=== PATIENT | female | born 1995 | race African-American/Black ===

== ENCOUNTER 2019-12-09 07:14 | Emergency (ER) | payer MEDICAID, OTHER ==
[~2019-12-09] VITALS: Ht 160 cm; Wt 58.9 kg
[2019-12-09] MEDS ORDERED: hydrALAZINE (APESOLINE) 20 MG/ML VIAL IV ONE ×3 (07:30→15:30)
--- NOTE | 2019-12-09 07:50 | NUR ---
Covid swab obtained from patient and sent to lab.
--- NOTE | 2019-12-09 07:56 | ED General ---
General Stated Complaint: GENERALIZED WEAKNESS Source of Information: Patient (LIMITED HISTORIAN), EMS History of Present Illness Date Seen by Provider: Dec 09, 2019 Time Seen by Provider: 07:15 Initial Comments PT ARRIVES VIA EMS--PT WAS PICKED UP FROM [facility] PT STATES SHE "DOESN'T FEEL GOOD" AND "NEEDS DIALYSIS" C/O SHORTNESS OF BREATH PT HAS ESRD AND IS ON DIALYSIS--STATES LAST DIALYSIS WAS 11/30/19 PT STATES SHE HAS BEEN ON DIALYSIS FOR 1 YEAR, AND IS SUPPOSED TO GET IN ON MONDAY, MONDAY, MONDAY PT STATES SHE IS "TRAVELING AROUND" WITH HER BROTHER, FROM [place] PT STATES SHE WAS HOSPITALIZED IN [place] IN [place] FOR "INFECTION IN HER HEART" AND HAS BEEN OUT OF THE HOSPITAL SINCE 11/30/19, WHEN SHE LAST HAD DIALYSIS AND WAS ON IV ANTIBIOTICS WHILE IN HOSPITAL--NOT ON ANTIBIOTICS SINCE THEN, ??POSSIBLY LEFT AMA?? STATES SHE GOT HERE TO [place] ON 12/01/19 PT HAS RIGHT CENTRAL LINE FOR DIALYSIS PT ALSO HAS HTN AND IS SUPPOSED TO BE ON CLONIDINE, COREG ( DESPITE REPORTING THAT SHE IS "ALLERGIC TO BETA BLOCKERS" ) , DOXAZOSIN, AND REPORTEDLY TAKES HYDROCODONE 10/325 "MULTIPLE TIMES A DAY" FOR CHRONIC GENERALIZED PAIN --STATES SHE HAS NOT TAKEN ANY MEDICATION TODAY WANTING PAIN MEDICATION SOON SHE ARRIVES--FOR "HURTING ALL OVER" PT DENIES CHEST PAIN DENIES FEVER DENIES COUGH NO SWELLING Allergies and Home Medications Allergies Coded Allergies: Beta-Blockers (Beta-Adrenergic Bloc (Verified Allergy, Unknown, 12/09/19) Home Medications Carvedilol 3.125 Mg Tablet, 3.125 MG PO BID, (Reported) Clonidine HCl 0.1 Mg Tablet, 0.1 MG PO BID, (Reported) Doxazosin Mesylate 1 Mg Tablet, 1 MG PO DAILY, (Reported) Hydrocodone/Acetaminophen 1 Each Tablet, 1 EACH PO PRN, (Reported) Patient Home Medication List Home Medication List Reviewed: Yes Review of Systems Review of Systems Constitutional: malaise Respiratory: short of breath Cardiovascular: No chest pain Gastrointestinal: No vomiting Genitourinary: see HPI Past Rtgsafn-Ytqsvv-Oknwbh Hx Past Med/Social Hx: Reviewed and Corrections made Patient Social History Alcohol Use: Denies Use Recreational Drug Use: No (DENIES ) Smoking Status: Never a Smoker Past Medical History Surgeries: Yes (RIGHT CENTRAL LINE FOR DIALYSIS; UNKNOWN TYPE OF ABDOMINAL SURGERY) Abdominal Cardiac: Yes Endocarditis, Hypertension Genitourinary: Yes Renal Failure, Dialysis Gastrointestinal: Yes (UNKNOWN ABOMINAL SURGERY) Endocrine: Yes Lupus Family Medical History PT HAS MIDLINE ABDOMINAL SURGICAL SCAR--STATES "SHE HAD A BLOOD CLOT" --ON QUIESTIONING OF WHERE HER "BLOOD CLOT" WAS AND WHY SHE NEEDED SURGERY, SHE WOULD ONLY STATE "I HAD BLOOD COMING OUT OF MY HENDERSON HENDERSON" AND COULD NOT ELABORATE Physical Exam Vital Signs Vital Signs - First Documented 12/09/19 07:14 Temp 36.6 Pulse 75 Resp 20 B/P (MAP) 181/122 (141) Pulse Ox 100 O2 Delivery Room Air Capillary Refill : Height, Weight, BMI Height: '" Weight: lbs. oz. kg; BMI Method: General Appearance: No Apparent Distress, WD/WN, Other (VERY DRAMATIC) HEENT: PERRL/EOMI Respiratory: Normal Breath Sounds, No Accessory Muscle Use, No Respiratory Distress, Other (RIGHT CENTRAL LINE DIALYSIS CATHETER IN PLACE. NO OBVIOUS SIGNS OF INFECTION) Cardiovascular: Regular Rate, Rhythm, No Murmur Gastrointestinal: Non Tender, Soft Extremity: No Pedal Edema Neurologic/Psychiatric: Alert, Oriented x3, No Motor/Sensory Deficits, Other (VERY DRAMATIC, WAILING AND CRYING WITH IV STICKS/ATTEMPTS) Skin: Normal Color (PT IS BLACK), Warm/Dry Focused Exam Lactate Level 12/09/19 09:20: Lactic Acid Level 0.60 Lactic Acid Level Progress/Results/Core Measures Suspected Sepsis SIRS Temperature: Pulse: Respiratory Rate: Laboratory Tests 12/09/19 09:20: White Blood Count 3.8L Blood Pressure / Mean: 12/09/19 09:20: Lactic Acid Level 0.60 Laboratory Tests 12/09/19 09:20: Creatinine 7.22H, INR Comment 1.2, Platelet Count 163, Total Bilirubin 0.4 Results/Orders Lab Results Laboratory Tests Test 12/09/19 07:50 12/09/19 08:07 12/09/19 09:20 12/09/19 09:22 Range/Units Coronavirus (COVID-19)(PCR) Negative Negative Urine Color YELLOW Urine Clarity SL CLOUDY Urine pH 7.5 5-9 Urine Specific [place] 1.015 L 1.016-1.022 Urine Protein 2+ H NEGATIVE Urine Glucose (UA) NEGATIVE NEGATIVE Urine Ketones NEGATIVE NEGATIVE Urine Nitrite NEGATIVE NEGATIVE Urine Bilirubin NEGATIVE NEGATIVE Urine Urobilinogen 0.2 < = 1.0 MG/DL Urine Leukocyte Esterase NEGATIVE NEGATIVE Urine RBC (Auto) NEGATIVE NEGATIVE Urine RBC NONE /HPF Urine WBC NONE /HPF Urine Squamous Epithelial Cells 5-10 /HPF Urine Crystals NONE /LPF Urine Bacteria TRACE /HPF Urine Casts NONE /LPF Urine Mucus NEGATIVE /LPF Urine Trichomonas MODERATE H /HPF Urine Culture Indicated NO Urine Test NEGATIVE NEGATIVE Urine Opiates Screen NEGATIVE NEGATIVE Urine Oxycodone Screen NEGATIVE NEGATIVE Urine Methadone Screen NEGATIVE NEGATIVE Urine Propoxyphene Screen NEGATIVE NEGATIVE Urine Barbiturates Screen NEGATIVE NEGATIVE Ur Tricyclic Antidepressants Screen NEGATIVE NEGATIVE Urine Phencyclidine Screen NEGATIVE NEGATIVE Urine Amphetamines Screen NEGATIVE NEGATIVE Urine Methamphetamines Screen NEGATIVE NEGATIVE Urine Benzodiazepines Screen NEGATIVE NEGATIVE Urine Cocaine Screen NEGATIVE NEGATIVE Urine Cannabinoids Screen POSITIVE H NEGATIVE White Blood Count 3.8 L 4.3-11.0 10^3/uL Red Blood Count 2.92 L 4.35-5.85 10^6/uL Hemoglobin 8.0 L 11.5-16.0 G/DL Hematocrit 25 L 35-52 % Mean Corpuscular Volume 84 80-99 FL Mean Corpuscular Hemoglobin 27 25-34 PG Mean Corpuscular Hemoglobin Concent 33 32-36 G/DL Red Cell Distribution Width 14.9 H 10.0-14.5 % Platelet Count 163 130-400 10^3/uL Mean Platelet Volume 8.5 7.4-10.4 FL Neutrophils (%) (Auto) 53 42-75 % Lymphocytes (%) (Auto) 40 12-44 % Monocytes (%) (Auto) 5 0-12 % Eosinophils (%) (Auto) 1 0-10 % Basophils (%) (Auto) 0 0-10 % Neutrophils # (Auto) 2.1 1.8-7.8 X 10^3 Lymphocytes # (Auto) 1.6 1.0-4.0 X 10^3 Monocytes # (Auto) 0.2 0.0-1.0 X 10^3 Eosinophils # (Auto) 0.0 0.0-0.3 10^3/uL Basophils # (Auto) 0.0 0.0-0.1 10^3/uL Erythrocyte Sedimentation Rate 80 H 0-20 MM/HR Prothrombin Time 15.9 H 12.2-14.7 SEC INR Comment 1.2 0.8-1.4 Activated Partial Thromboplast Time 187 *H 24-35 SEC D-Dimer 3.98 H 0.00-0.49 UG/ML Sodium Level 139 135-145 MMOL/L Potassium Level 5.7 H 3.6-5.0 MMOL/L Chloride Level 114 H 98-107 MMOL/L Carbon Dioxide Level 15 L 21-32 MMOL/L Anion Gap 10 5-14 MMOL/L Blood Urea Nitrogen 53 H 7-18 MG/DL Creatinine 7.22 H 0.60-1.30 MG/DL Estimat Glomerular Filtration Rate 7 BUN/Creatinine Ratio 7 Glucose Level 86 70-105 MG/DL Lactic Acid Level 0.60 0.50-2.00 MMOL/L Calcium Level 8.6 8.5-10.1 MG/DL Corrected Calcium 9.2 8.5-10.1 MG/DL Phosphorus Level 5.3 H 2.3-4.7 MG/DL Magnesium Level 1.9 1.6-2.4 MG/DL Total Bilirubin 0.4 0.1-1.0 MG/DL Aspartate Amino Transf (AST/SGOT) 17 5-34 U/L Alanine Aminotransferase (ALT/SGPT) 8 0-55 U/L Alkaline Phosphatase 108 40-136 U/L Lactate Dehydrogenase 289 H 125-220 U/L Troponin I < 0.028 <0.028 NG/ML C-Reactive Protein High Sensitivity 0.58 H 0.00-0.50 MG/DL Total Protein 7.0 6.4-8.2 GM/DL Albumin 3.3 3.2-4.5 GM/DL Procalcitonin 0.08 <0.10 NG/ML Serum Alcohol < 10 <10 MG/DL Glucometer 96 70-110 MG/DL My Orders Orders - LEEANNA SHETH DO Ed Iv/Invasive Line Start (12/09/19 07:17) Ekg Tracing (12/09/19 07:17) Monitor-Rhythm Ecg Trace Only (12/09/19 07:17) Chest 1 View, Ap/Pa Only (12/09/19 07:17) Cbc With Automated Diff (12/09/19 07:17) Comprehensive Metabolic Panel (12/09/19 07:17) Magnesium (12/09/19 07:17) Protime With Inr (12/09/19 07:17) Partial Thromboplastin Time (12/09/19 07:17) Phosphorus (12/09/19 07:17) Troponin I (12/09/19 07:17) Fibrin Degradation Products (12/09/19 07:28) Procalcitonin (Pct) (12/09/19 07:28) Hs C Reactive Protein (12/09/19 07:28) Erythrocyte Sedimentation Rate (12/09/19 07:28) LDH (12/09/19 07:28) Coronavirus Sars-Cov-2 So 2018 (12/09/19 07:28) Hcg,Qualitative Urine (12/09/19 07:28) Alcohol (12/09/19 07:28) Drug Screen Stat (Urine) (12/09/19 07:28) Hydralazine Injection (Apresoline Inject (12/09/19 07:30) Lactic Acid Analyzer (12/09/19 08:00) Blood Culture (12/09/19 08:00) Ua Culture If Indicated (12/09/19 08:52) Heparin (Central Iv Flush) (Heparin (Yadiel (12/09/19 09:18) Heparin (Central Iv Flush) (Heparin (Yadiel (12/09/19 09:18) Methylprednisolone Sod Succ (Solu-Medrol (12/09/19 09:30) Methylprednisolone Sod Succ (Solu-Medrol (12/09/19 09:25) Hydralazine Injection (Apresoline Inject (12/09/19 10:30) Sodium Polystyrene Sulfonate (Kayexalate (12/09/19 10:30) Calcium Gluconate 10% Inj (Calcium Glu (12/09/19 10:30) D50w (Emergency) Syringe (Dextrose 50% 5 (12/09/19 10:30) Insulin (Regular) Human (Novolin R (Per (12/09/19 10:30) Carvedilol Tablet (Coreg Tablet) (12/09/19 11:15) Clonidine Tablet (Catapres Tablet) (12/09/19 11:15) Arterial Blood Gas (12/09/19 11:12) Ondansetron Injection (Zofran Injectio (12/09/19 11:45) Hydrocodone/Apap 10/325 Tablet (Lortab 1 (12/09/19 14:30) Clonidine Tablet (Catapres Tablet) (12/09/19 15:30) Carvedilol Tablet (Coreg Tablet) (12/09/19 15:30) Hydralazine Injection (Apresoline Inject (12/09/19 15:30) Medications Given in ED Vital Signs/I&O Capillary Refill : Progress Note : Progress Note ON BRIEF QUESTIONING OF PT, AFTER EMS ARRIVAL, WAS DETERMINED THAT PT WAS COVID P.U.I AND ALL STAFF IMMEDIATELY DONNED PPE, AND ALL PRECAUTIONS INITIATED. COVID TESTING PERFORMED PT IS VERY DIFFICULT IV STICK, AND UNABLE TO OBTAIN BLOOD FOR LAB SPECIMENS, DESPITE MULTIPLE STICKS BY MULTIPLE STAFF MEMBERS . NURSING HAS PLACED #22 G IV, BUT UNABLE TO OBTAIN LAB DRAW FROM IV SITE. GIVEN HYDRALAZINE FOR ELEVATED BLOOD PRESSURE, LATER FOLLOWED BY ORAL CLONIDINE AND COREG. PT REQUIRED MULTIPLE DOSES OF MEDICATION TO CONTROL BLOOD PRESSURE GIVEN SOLU-MEDROL FOR GENERALIZED PAIN COMPLAINTS PT CONTINUES TO DEMAND PAIN MEDICATION FOR "HURTING ALL OVER" -HYDROCODONE ORDERED. O2 SATS REMAIN 100% ON ROOM AIR, AND NO DYSPNEA AT ANY TIME DURING ER STAY 1415--DESPITE HAVING A BEDSIDE COMMODE IN THE ROOM, PT HAS DEFECATED ALL OVER HERSELF AND THE BED ECG Initial ECG Impression Date: Dec 09, 2019 Initial ECG Impression Time: 07:27 Initial ECG Rate: 76 Initial ECG Rhythm: Normal Sinus Initial ECG Comparisson: No Previous ECG Available Diagnostic Imaging Comments CXR--PER RADIOLOGIST REPORT AT 0836 Portable chest 8:10 AM Right IJ dialysis catheter tip projects over the right atrium. Heart size and pulmonary vascularity are normal. Lungs are clear. There are no effusions or pneumothoraces. IMPRESSION: Negative chest Reviewed: Reviewed by Me Departure Communication (Admissions) NO DIALYSIS SERVICES HERE 0719--CALLED [facility], NO BEDS AVAILABLE THERE--ON FULL DIVERSION 0720--CALLED [facility]. NO BEDS AVAILABLE THERE--ON FULL DIVERSION 0720--CALLED [facility], INFORMATION GIVEN, HAVE BEDS, WILL CALL THEM BACK WHEN TEST RESULTS ARE BACK 0755--CALLED [facility], AND ADDITIONAL PT INFORMATION GIVEN REGARDING RECENT HOSPITALIZATION AT [facility] [place]. 0845--MESSAGE TO DR. FARAH IN SURGERY, REGARDING NEED FOR CENTRAL LINE. 0907--DR. FARAH HERE TO SEE PT. LAB SPECIMEN OBTAINED FROM DIALYSIS LINE. PT HAS A PERIPHERAL LINE IN PLACE. 1015--CALLED [facility]. WILL CALL ME BACK 1042--[facility] CALLED, THEY WILL DISCUSS WITH PHYSICIAN AND CALL ME BACK. 1109--[facility] CALLED BACK. DR. Kailyn WHITNEY, HAS ACCEPTED THE PT FOR ADMIT. ADVISES NO TREATMENT OF MILDLY ELEVATED POTASSIUM AT THIS TIME. REQUESTS VENOUS BLOOD GAS ( MULTIPLE ATTEMPTS TO OBTAIN WERE UNSUCCESSFUL) [facility] WILL CALL BACK WITH A ROOM ASSIGNMENT 1310--RN HAS CALLED [facility], STILL WAITING ON BED ASSIGNMENT--THEY WILL CALL US WHEN BED HAS BEEN ASSIGNED. 1557--CALLED [facility], STILL WAITING ON BED ASSIGNMENT, THEY WILL CALL BACK WHEN BED HAS BEEN ASSIGNED. 1610--[facility] CALLED BACK WITH BED ASSIGNMENT 1610--[facility] EMS BEING DISPATCHED FOR TRANSPORT Impression Primary Impression: ESRD (end stage renal disease) on dialysis Additional Impressions: RECENT HOSPITALZATION FOR ENDOCARDITIS COVID P.U.I. Uncontrolled hypertension History of lupus Poor venous access Illicit drug use Anemia GENERALIZED PAIN COMPLAINT Hyperkalemia Disposition: 02 XFER SHT-TRM HOSP Condition: Stable Transfer Transfer Reason: Exceeds level of care Transfer Facility: [facility] Method of Transfer: EMS LEEANNA SHETH DO Dec 09, 2019 07:56
[2019-12-09] MEDS ORDERED: CLON0.1T PO (08:17)
[2019-12-09] MEDS ORDERED: DOXA1TAB2 PO (08:17)
[2019-12-09] MEDS ORDERED: CARV3.12 PO (08:17)
[2019-12-09] MEDS ORDERED: HYDR-3820 PO (08:17)
--- NOTE | 2019-12-09 08:30 | NUR ---
Patient asking repeatedly for pain medication. Dr. Segal notified and no new orders given.
--- NOTE | 2019-12-09 08:34 | Diagnostic Imaging Report ---
Indication: Chest pain and weakness Portable chest 8:10 AM Right IJ dialysis catheter tip projects over the right atrium. Heart size and pulmonary vascularity are normal. Lungs are clear. There are no effusions or pneumothoraces. IMPRESSION: Negative chest Dictated by: Dictated on workstation # [id number]
--- NOTE | 2019-12-09 08:51 | NUR ---
UNABLE TO LABS AT THIS X, HAS CALLED SURGEON REQUESTING A CENTRAL LINE
[2019-12-09 08:57] LABS: AMPHETAMINE SCREEN, URINE NEGATIVE (NEGATIVE); BARBITURATE SCREEN URINE NEGATIVE (NEGATIVE); BENZODIAZEPINES SCREEN URINE NEGATIVE (NEGATIVE); CANNABINOID SCREEN, URINE POSITIVE (NEGATIVE); COCAINE SCREEN URINE NEGATIVE (NEGATIVE); METHADONE STAT NEGATIVE (NEGATIVE); METHAMPHETAMINE SCREEN URINE S NEGATIVE (NEGATIVE); OPIATE SCREEN URINE NEGATIVE (NEGATIVE); OXYCODONE STAT NEGATIVE (NEGATIVE); PROPOXYPHENE STAT NEGATIVE (NEGATIVE); TRICYCLIC ANTIDEPRESSANTS SCRE NEGATIVE (NEGATIVE)
--- NOTE | 2019-12-09 09:00 | NUR ---
Report given to Jennifer VELARDE.
[2019-12-09] MEDS ORDERED: HEParin (CENTRAL IV FLUSH) 500 UNIT/5 ML SYR ONE ×2 (09:18)
--- NOTE | 2019-12-09 09:20 | NUR ---
DR FARAH HERE TO SEE PT HAS DECIDED TO USE DIALYSIS CATHETER IN R CHEST WALL. DR HAS DRAWN OUT 10CC BLOOD FOR WASTE, DRAWN OUT 15CC FOR LAB, FLUSHED W NS 10CC THEN FLUSHED BOTH PORTS W 5CC HEP FLUSH SOLN
[2019-12-09] MEDS ORDERED: methylPREDNISolone 125 MG (Solu-MEDROL) VIAL ONE (09:25)
[2019-12-09] MEDS ORDERED: methylPREDNISolone 125 MG (Solu-MEDROL) VIAL IVP ONE (09:30)
[2019-12-09 09:53] LABS: BASOPHILS % (AUTO) 0 % (0-10); EOSINOPHILS % (AUTO) 1 % (0-10); HEMATOCRIT 25 % (35-52); LYMPHOCYTES # (AUTO) 1.6 X 10^3 (1.0-4.0); LYMPHOCYTES % (AUTO) 40 % (12-44); MEAN CORPUSCULAR HEMOGLOBIN 27 PG (25-34); MEAN CORPUSCULAR HGB CONC 33 G/DL (32-36); MEAN CORPUSCULAR VOLUME 84 FL (80-99); MEAN PLATELET VOLUME 8.5 FL (7.4-10.4); MONOCYTES # (AUTO) 0.2 X 10^3 (0.0-1.0); MONOCYTES % (AUTO) 5 % (0-12); NEUTROPHILS # (AUTO) 2.1 X 10^3 (1.8-7.8); NEUTROPHILS % (AUTO) 53 % (42-75); PLATELET COUNT 163 10^3/uL (130-400); RED CELL DISTRIBUTION WIDTH 14.9 % (10.0-14.5); WHITE BLOOD COUNT 3.8 10^3/uL (4.3-11.0)
--- NOTE | 2019-12-09 09:57 | NUR ---
Recieved report from PRACHI Rodriguez to assume care of pt at this time.
[2019-12-09 10:00] LABS: ALBUMIN 3.3 GM/DL (3.2-4.5); CHLORIDE 114 MMOL/L (98-107); POTASSIUM 5.7 MMOL/L (3.6-5.0); SODIUM 139 MMOL/L (135-145)
[2019-12-09 10:01] LABS: CALCIUM 8.6 MG/DL (8.5-10.1)
[2019-12-09 10:03] LABS: GLUCOSE 86 MG/DL (70-105)
[2019-12-09 10:04] LABS: BILIRUBIN,TOTAL 0.4 MG/DL (0.1-1.0); CARBON DIOXIDE 15 MMOL/L (21-32)
[2019-12-09 10:06] LABS: ALKALINE PHOSPHATASE 108 U/L (40-136); PHOSPHORUS 5.3 MG/DL (2.3-4.7)
[2019-12-09 10:07] LABS: CREATININE SERUM 7.22 MG/DL (0.60-1.30); GFR ESTIMATED 7
[2019-12-09 10:08] LABS: BUN/CREATININE RATIO 7
[2019-12-09 10:09] LABS: ALANINE AMINOTRANSFERASE 8 U/L (0-55); MAGNESIUM 1.9 MG/DL (1.6-2.4)
[2019-12-09 10:19] LABS: FIBRIN DEGRADATION PRODUCTS 3.98 UG/ML (0.00-0.49); INR 1.2 (0.8-1.4); PROTHROMBIN TIME PATIENT 15.9 SEC (12.2-14.7)
[2019-12-09 10:27] LABS: ERYTHROCYTE SEDIMENTATION RATE 80 MM/HR (0-20)
[2019-12-09] MEDS ORDERED: CALCIUM GLUC. 10% 4.65 MEQ/10 ML VIAL IV ONE (10:30)
[2019-12-09] MEDS ORDERED: SOD POLYSTERENE 15 GM/60 ML (KAYEXALATE) UNIT DOSE PO ONE (10:30)
[2019-12-09] MEDS ORDERED: inSUlin (REGULAR) HUMAN 1 UNIT/0.01 ML (CHARGE PER UNIT) IV ONE (10:30)
[2019-12-09] MEDS ORDERED: DEXTROSE 50% 50 ML (IMS) SYR IV ONE (10:30)
[2019-12-09] MEDS ORDERED: cloNIDine 0.2 MG (CATAPRES) TAB PO ONE ×2 (11:15→15:30)
[2019-12-09] MEDS ORDERED: CARVEDILOL 6.25 MG (COREG) TAB PO ONE ×2 (11:15→15:30)
--- NOTE | 2019-12-09 11:20 | Consultation - Surgery ---
History of Present Illness History of Present Illness Patient Consulted On(bk/time) 12/09/19 11:14 Time Seen by Provider: 09:11 History of Present Illness Surgery asked to consult regarding Venous Insufficiency and possible need for central line. HPI per ED: PT ARRIVES VIA EMS--PT WAS PICKED UP FROM [facility] PT STATES SHE "DOESN'T FEEL GOOD" AND "NEEDS DIALYSIS" C/O SHORTNESS OF BREATH PT HAS ESRD AND IS ON DIALYSIS--STATES LAST DIALYSIS WAS 11/30/19 PT STATES SHE HAS BEEN ON DIALYSIS FOR 1 YEAR, AND IS SUPPOSED TO GET IN ON MONDAY, MONDAY, MONDAY PT STATES SHE IS "TRAVELING AROUND" WITH HER BROTHER, FROM [place] PT STATES SHE WAS HOSPITALIZED IN [facility] IN [place] FOR "INFECTION IN HER HEART" AND HAS BEEN OUT OF THE HOSPITAL SINCE 11/30/19, WHEN SHE LAST HAD DIALYSIS AND WAS ON IV ANTIBIOTICS WHILE IN HOSPITAL--NOT ON ANTIBIOTICS SINCE THEN, ??POSSIBLY LEFT AMA?? PT HAS RIGHT CENTRAL LINE FOR DIALYSIS PT ALSO HAS HTN AND IS SUPPOSED TO BE ON CLONIDINE, COREG ( DESPITE REPORTING THAT SHE IS "ALLERGIC TO BETA BLOCKERS" ) , DOXAZOSIN, AND REPORTEDLY TAKES HYDROCODONE 10/325 "MULTIPLE TIMES A DAY" FOR CHRONIC GENERALIZED PAIN --STATES SHE HAS NOT TAKEN ANY MEDICATION TODAY WANTING PAIN MEDICATION SOON SHE ARRIVES--FOR "HURTING ALL OVER" PT DENIES CHEST PAIN DENIES FEVER DENIES COUGH NO SWELLING Allergies and Home Medications Allergies Coded Allergies: Beta-Blockers (Beta-Adrenergic Bloc (Verified Allergy, Unknown, 12/09/19) Home Medications Carvedilol 3.125 Mg Tablet, 3.125 MG PO BID, (Reported) Clonidine HCl 0.1 Mg Tablet, 0.1 MG PO BID, (Reported) Doxazosin Mesylate 1 Mg Tablet, 1 MG PO DAILY, (Reported) Hydrocodone/Acetaminophen 1 Each Tablet, 1 EACH PO PRN, (Reported) Patient Home Medication List Home Medication List Reviewed: Yes Past Raicgpt-Mocpfn-Wzvnvu Hx Patient Social History Alcohol Use: Denies Use Recreational Drug Use: No (DENIES ) Drug of Choice: MARIJUANA Smoking Status: Never a Smoker 2nd Hand Smoke Exposure: Yes Recent Foreign Travel: No Contact w/Someone Who Travel: No Recent Infectious Disease Expo: No Recent Hopitalizations: Yes Immunizations Up To Date PED Vaccines UTD: Yes Seasonal Allergies Seasonal Allergies: No Surgeries History of Surgeries: Yes (RIGHT CENTRAL LINE FOR DIALYSIS; UNKNOWN TYPE OF ABDOMINAL SURGERY) Surgeries: Abdominal Respiratory History of Respiratory Disorde: No Cardiovascular History of Cardiac Disorders: Yes Cardiac Disorders: Endocarditis, Hypertension Neurological History of Neurological Disord: No Reproductive System SPEECH AND LANGUAGE CLINICIAN History: Tubal Ligation Genitourinary History of Genitourinary Disor: Yes Genitourinary Disorders: Renal Failure, Dialysis Gastrointestinal History of Gastrointestinal Di: Yes (UNKNOWN ABOMINAL SURGERY) Musculoskeletal History of Musculoskeletal Dis: No Endocrine History of Endocrine Disorders: Yes Endocrine Disorders: Lupus HEENT History of HEENT Disorders: No Cancer History of Cancer: No Psychosocial History of Psychiatric Problem: No Integumentary History of Skin or Integumenta: No Family Medical History Significant Family History: Heart Disease, Hypertension Review of Systems-General Constitutional: malaise, weakness EENTM: No blurred vision, No double vision, No epistaxis Respiratory: No cough; short of breath Cardiovascular: No chest pain, No edema Gastrointestinal: No abdominal pain, No nausea, No vomiting Genitourinary: No dysuria, No frequency, No hematuria Physical Exam-General Problems Physical Exam Vital Signs Vital Signs - First Documented 12/09/19 07:14 Temp 36.6 Pulse 75 Resp 20 B/P (MAP) 181/122 (141) Pulse Ox 100 O2 Delivery Room Air Capillary Refill : Less Than 3 Seconds General Appearance: WD/WN, mild distress Eyes: Bilateral Eye PERRL, Bilateral Eye EOMI Respiratory: lungs clear, normal breath sounds, no respiratory distress, no accessory muscle use Cardiovascular: regular rate, rhythm, no murmur Gastrointestinal: non tender, soft, no organomegaly Data Review Labs Laboratory Tests 12/09/19 07:50: 12/09/19 08:07: Urine Test NEGATIVE, Urine Opiates Screen NEGATIVE, Urine Oxycodone Screen NEGATIVE, Urine Methadone Screen NEGATIVE, Urine Propoxyphene Screen NEGATIVE, Urine Barbiturates Screen NEGATIVE, Ur Tricyclic Antidepressants Screen NEGATIVE, Urine Phencyclidine Screen NEGATIVE, Urine Amphetamines Screen NEGATIVE, Urine Methamphetamines Screen NEGATIVE, Urine Benzodiazepines Screen NEGATIVE, Urine Cocaine Screen NEGATIVE, Urine Cannabinoids Screen POSITIVEH 12/09/19 09:20: White Blood Count 3.8L, Red Blood Count 2.92L, Hemoglobin 8.0L, Hematocrit 25L, Mean Corpuscular Volume 84, Mean Corpuscular Hemoglobin 27, Mean Corpuscular Hemoglobin Concent 33, Red Cell Distribution Width 14.9H, Platelet Count 163, Mean Platelet Volume 8.5, Neutrophils (%) (Auto) 53, Lymphocytes (%) (Auto) 40, Monocytes (%) (Auto) 5, Eosinophils (%) (Auto) 1, Basophils (%) (Auto) 0, Neutrophils # (Auto) 2.1, Lymphocytes # (Auto) 1.6, Monocytes # (Auto) 0.2, Eosinophils # (Auto) 0.0, Basophils # (Auto) 0.0, Erythrocyte Sedimentation Rate 80H, Prothrombin Time 15.9H, INR Comment 1.2, Activated Partial Thromboplast Time 187*H, D-Dimer 3.98H, Sodium Level 139, Potassium Level 5.7H, Chloride Level 114H, Carbon Dioxide Level 15L, Anion Gap 10, Blood Urea Nitrogen 53H, Creatinine 7.22H, Estimat Glomerular Filtration Rate 7, BUN/Creatinine Ratio 7, Glucose Level 86, Lactic Acid Level 0.60, Calcium Level 8.6, Corrected Calcium 9.2, Phosphorus Level 5.3H, Magnesium Level 1.9, Total Bilirubin 0.4, Aspartate Amino Transf (AST/SGOT) 17, Alanine Aminotransferase (ALT/SGPT) 8, Alkaline Phosphatase 108, Lactate Dehydrogenase 289H, Troponin I < 0.028, C-Reactive Protein High Sensitivity 0.58H, Total Protein 7.0, Albumin 3.3, Procalcitonin 0.08, Serum Alcohol < 10 12/09/19 09:22: Glucometer 96 Assessment/Plan Assessment/Plan Assessment/Plan Venous Insufficiency ESRD I saw pt and assessed her regarding central line placement. Nursing had gotten a 22 gauge IV, but could not draw blood. Pt has a right IJ Dialysis catheter. Unable to get blood for labs so pt could be transferred to for Dialysis. I accessed her dialysis catheter and withdrew 20ml of blood. I then had nursing use 5ml of Heparin flush in each side. Pt tolerated this without any problems. BENEDICT FARAH DO Dec 09, 2019 11:20
[2019-12-09] MEDS ORDERED: ONDANSETRON 4 MG/2 ML (SDV) Z0FRAN IVP ONE (11:45)
--- NOTE | 2019-12-09 12:04 | NUR ---
Upon entering room, pt reports she vomited on floor. Pt refuses blood to be drawn from IV site or blood draw. Pt reports she is unable to take prescribed PO medication at this time d/t nausea. Provider notified.
[2019-12-09 13:03] LABS: BILIRUBIN,URINE NEGATIVE (NEGATIVE); CLARITY,URINE SL CLOUDY; COLOR,URINE YELLOW; GLUCOSE, URINE (UA) NEGATIVE (NEGATIVE); KETONES,URINE NEGATIVE (NEGATIVE); LEUKOCYTE ESTERASE ,URINE NEGATIVE (NEGATIVE); NITRITE,URINE NEGATIVE (NEGATIVE); PH,URINE 7.5 (5-9); PROTEIN,URINE 2+ (NEGATIVE)
--- NOTE | 2019-12-09 13:08 | NUR ---
Contacted [facility] regarding update on bed assignment. [facility] reports no current bed assignment at this time et will call when one in assigned to pt.
[2019-12-09 13:13] LABS: BACTERIA,URINE TRACE /HPF; TRICHOMONAS,URINE MODERATE /HPF
--- NOTE | 2019-12-09 14:13 | NUR ---
Pt noted to be incontinent of bowel. Assisted pt to bedside commode.
[2019-12-09] MEDS ORDERED: HYDROcodone/APAP 10 MG/325 MG (LORTAB) TAB PO ONE (14:30)
--- NOTE | 2019-12-09 16:24 | NUR ---
Pt report called to PRACHI Jordan at [facility]. Room #[id number]
[2019-12-09 16:44] VITALS: BP 163/112
== END 2019-12-09 16:45 | disposition short-term general hospital (02) ==
LOC: ER 07:17
DX: I12.0 Hypertensive chronic kidney disease with stage 5 chronic kidney disease or end stage renal disease (principal); N18.6 End stage renal disease; I38 Endocarditis, valve unspecified; M32.9 Systemic lupus erythematosus, unspecified; I87.2 Venous insufficiency (chronic) (peripheral); F19.90 Other psychoactive substance use, unspecified, uncomplicated; D64.9 Anemia, unspecified; E87.5 Hyperkalemia; Z20.828 Contact with and (suspected) exposure to other viral communicable diseases; Z99.2 Dependence on renal dialysis; Z88.8 Allergy status to other drugs, medicaments and biological substances
CPT/HCPCS: 71045; 80053; 80306; 81000; 82962; 83605; 83615; 83735; 84100; 84145; 84484; 84703; 85025; 85379; 85610; 85652; 85730; 86141; 87040; 93005; 93041; 99285; G0480; U0002; 36415; 80320; 87635